=== PATIENT | male | born 1970 | race Caucasian/White ===

== ENCOUNTER → 2016-06-24 | Outpatient (CLI) | payer BC ==
[~2016-06-24] MED LIST: ALBUTEROL17 GM INH; AMARYL PO; BENZONATATE PO; CIPRO PO; FORTAMET1000 MG; JARDIANCE25 MG PO; LIPITOR PO; LOSARTAN-HCTZ1 EAC1 PO; METFORMIN PO; NOVOLOG100 UNIT/1; ONGLYZA5 MG PO; OSTEO BI-FLEX1 EAC2 PO; PREDNISONE PO; SOLIQUA 100 UNIT3 ML; ST. JOSEPH ASP325 MG PO; TERBINAFINE HC250 M1 PO; TOPROL XL50 MG PO; VITAMIN D400 UNI2; ZITHROMAX PO
[2016-06-24 08:04] LABS: CALCIUM SERUM 9.1 mg/dL (8.4-10.2); GLOM FILT RATE Estimated 90.5 mL/min (>60); POTASSIUM 4.2 mmol/L (3.5-5.1)
== END | disposition home or self-care (01) ==
LOC: CLAB 07:19
PROVIDERS: Internal Medicine Endocrinology, Diabetes & Metabolism
DX: E11.65 Type 2 diabetes mellitus with hyperglycemia (principal)
CPT/HCPCS: 36415; 80048; 83036

== ENCOUNTER 2016-06-26 16:17 | Emergency (ER) | payer BC ==
--- NOTE | ~2016-06-26 | CT114 ---
[facility] A Service of [facility] / [facility] RADIOLOGY TEXT RESULTS PATIENT: ISHAN MURDOCK LOCATION: SED : 70 UNIT #: [id number] AGE: [address]: Christiano Connor MD SEX: M ORDER DR: [id number] [place] [id number] E MR#: [id number] Acc #: [id number] NAME: ISHAN MURDOCK : 1970 SEX: M STUDY DATE/TIME: 06/26/2016 18:24 UNIT: SED ROOM: STUDY DESCRIPTION: CT Soft Tissue Neck W Cont Attending Physician: Christiano Connor M.D. Ordering Physician: Christiano Connor M.D. Primary Care Physician: Nikolas Cruz M.D. MEDICAL IMAGING REPORT This report is preliminary unless electronic signature is present. EXAM Soft tissue neck CT with contrast, 06/26/2016 PROCEDURE Axial contrast-enhanced soft tissue neck CT with multiplanar reformats. This CT exam was performed with one or more of the following radiation dose reduction techniques: Automatic exposure control, adjustment of mA and/or kV according to patient size, and iterative reconstruction. COMPARISON None. HISTORY Difficulty swallowing, pain, "tongue and throat swelling." FINDINGS There is no mass or acute inflammatory change. There are normal size symmetric cervical lymph nodes, but there is no suspicious adenopathy. Nondetailed images of the larynx are unremarkable. There is probably a small left thyroid nodule, about 11 x 9 x 9 mm in size. There is minimal spinal degenerative change, but no acute bony abnormality. IMPRESSION Negative soft tissue neck CT. No mass or adenopathy or inflammatory change, or other acute appearing abnormality. There are chronic changes in the maxillary sinuses bilaterally with bilateral maxillary atelectasis, and there is probably a left thyroid 11 x 9 x 9 mm nodule; consider outpatient followup thyroid nodule. [facility] A Service of [facility] / [facility] RADIOLOGY TEXT RESULTS PATIENT: ISHAN MURDOCK LOCATION: SED : 70 UNIT #: [id number] AGE: [address]: Christiano Connor MD SEX: M ORDER DR: Dictated by... Thompson Motta M.D. THIS IS AN ELECTRONICALLY VERIFIED REPORT Thompson Motta M.D. at 06/27/2016 9:41 AM TEV/psc TD: 06/26/2016 22:26 JOB #: [id number] MEDICAL IMAGING REPORT Page 1 of 1
[2016-06-26 16:38] LABS: BASOPHIL# 0.1 X10e3 (0-0.3); BASOPHIL% 0.7 % (0-2.5); EOSINOPHIL# 0.2 X10e3 (0-0.7); EOSINOPHIL% 2.1 % (0.0-7.0); HEMATOCRIT 37.4 % (38.0-50.0); HEMOGLOBIN 12.3 gm/dL (13.0-16.0); LYMPHOCYTE# 2.4 X10e3 (1.0-3.5); LYMPHOCYTE% 24.3 % (17.0-45.0); MEAN CELL VOLUME 84.3 FL (83-96); MEAN CORPUSCULAR HEMOGLOBIN 27.8 PG (28-34); MEAN PLATELET VOLUME 6.7 FL (6.5-11.5); MONOCYTE# 0.9 X10e3 (0-1.0); MONOCYTE% 9.4 % (3.0-12.0); NEUTROPHIL# 6.2 X10e3 (1.5-7.1); NEUTROPHIL% 63.5 % (40-75); PLATELET COUNT 343 X10e3 (140-420); RED BLOOD COUNT 4.43 X10e (3.90-5.60); RED CELL DISTRIBUTION WIDTH 14.9 % (11.0-15.5); WHITE BLOOD COUNT 9.8 X10e3 (4.0-10.5)
[2016-06-26 16:48] LABS: DIFF IND NO
[2016-06-26 16:58] LABS: INFLUENZA A NEG (NEG); INFLUENZA B NEG (NEG)
[2016-06-26 17:03] LABS: CALCIUM SERUM 9.1 mg/dL (8.4-10.2); GLOM FILT RATE Estimated 90.5 mL/min (>60); POTASSIUM 3.5 mmol/L (3.5-5.1)
== END 2016-06-26 19:52 | disposition home or self-care (01) ==
LOC: SED 16:17
PROVIDERS: Emergency Medicine
DX: J02.9 Acute pharyngitis, unspecified (principal); E11.9 Type 2 diabetes mellitus without complications
CPT/HCPCS: 36415; 70491; 80048; 85025; 86308; 87651; 87804; 96361; 96372; 96374; 99284; J2270; Q9967

== ENCOUNTER → 2016-11-18 | Outpatient (CLI) | payer BC ==
[2016-11-18 09:29] LABS: ALBUMIN SERUM 4.5 g/dL (3.5-5.0); BILIRUBIN,TOTAL 0.3 mg/dL (0.2-2.0); BUN/CREATININE RATIO 24.44; CALCIUM SERUM 9.4 mg/dL (8.4-10.2); CREATININE SERUM 0.9 mg/dL (0.6-1.4); GLOM FILT RATE Estimated 102.1 mL/min (>60); POTASSIUM 4.1 mmol/L (3.5-5.1); PROTEIN TOTAL SERUM 7.3 g/dL (6.0-8.3)
[2016-11-21 16:56] LABS: MICROALB UR (PNL) 2.8 mg/dL (***)
== END | disposition home or self-care (01) ==
LOC: CLAB 08:02
PROVIDERS: Internal Medicine Endocrinology, Diabetes & Metabolism
DX: E11.65 Type 2 diabetes mellitus with hyperglycemia (principal)
CPT/HCPCS: 36415; 80053; 80061; 82043; 82570; 83036